=== PATIENT | female | born 1965 | race Caucasian/White ===

== ENCOUNTER → 2020-01-31 08:17 | Outpatient (CLI) | payer SELFPAY ==
--- NOTE | 2020-01-31 08:18 | CT_ITS ---
PROCEDURE: CT HEART W CALCIUM SCORE CLINICAL HISTORY: cp/dfyspnea, family history COMPARISON: No exams were available for comparison TECHNIQUE: Axial images obtained with sagittal and coronal reformats. All CT scans at the facility use one or more dose reduction, viz: automated exposure control, ma/kV adjustment per patient size (including targeted exams where dose is matched to indication, i.e. head), or iterative reconstruction technique. FINDINGS: The coronary artery calcium score is 0. No identifiable atherosclerotic plaque evident with very low cardiovascular disease risk. IMPRESSION: No identifiable calcific atherosclerotic plaque with very low cardiovascular disease risk Dictated by: Sid Bland MD 01/31/2020 14:40 Sid Bland MD in [place] 01/31/2020 14:40
== END ==
PROVIDERS: Visit Provider Internal Medicine Cardiovascular Disease
DX: Z13.6 Encounter for screening for cardiovascular disorders (principal)
CPT/HCPCS: 75571; 93306

== ENCOUNTER → 2020-01-31 09:00 | Outpatient (CLI) | payer MEDICAID, SELFPAY ==
--- NOTE | 2020-01-31 08:40 | CA_ITS ---
APPROVED REPORT EXAM: Comprehensive 2D, Doppler, and color-flow Echocardiogram Transcription Specialist: Kalpana Hitchcock CRT Ht: 5 ft 6 in Wt: 246lbs BSA: 2.18 BP: 138/73 mmHg Indications: Chest Pain, Shortness of Breath, Obesity, Fatigue, Peripheral Edema 2D Dimensions LVOT 1.61 cm (M/F) 1.5-2.5 M-Mode Dimensions RVDd 3.04 cm (0.9-2.6) LA Diam 3.55 cm (1.9-4.0) LVDd 4.47 cm (3.5-5.7) Ao Diam 3.03 cm (2.0-3.7) LVDs 2.93 cm (3.5-5.7) IVSd 1.36 cm (0.6-1.1) PWd 0.82 cm (0.6-1.1) EF (Teich) 63.70% FS 34.50% EDV (Teich) 91.00 mL ESV (Teich) 33.00 mL LV Diastology E Decel Time 387.00 (160-240 msec) E/A Ratio 0.93 MED E' 7.10 (< 7 cm/sec) E'/MED E' Ratio 8.23 (>14) LAT E' 10.80 (<10 cm/sec) E/LAT E' Ratio 5.41 (>14) Aortic Valve AO Peak GR. 5.70 mmHg Mitral Valve MV A Velocity 63.00 (40-130 cm/s) E/A Ratio 0.93 MV Decel. Time 387.00 (160-240 ms) Pulmonary Valve PV Peak Velocity 103.00 (50-150 cm/s) Tricuspid Valve TR P. Velocity 110.00 cm/s RAP Estimate 10.00 mmHg RVSP 14.80 mmHg Left Ventricle Left atrium is normal size, left ventricle is normal size, there is no concentric left ventricular hypertrophy, visually estimated ejection fraction 55% with no regional wall motion abnormality, diastolic parameters are inconclusive. Right Ventricle Right atrium is normal size, right ventricle is mildly enlarged with normal contractility. Aortic Valve Aortic valve is grossly normal, there is no aortic stenosis or aortic insufficiency. Mitral Valve Mitral valve grossly normal, there is no mitral stenosis, there is mild mitral regurgitation. Tricuspid Valve Tricuspid valve is grossly normal, there is mild tricuspid regurgitation. Tricuspid regurgitation jet velocity is inadequate for calculation of the right ventricular systolic pressure. Pulmonic Valve Pulmonic valve is poorly visualized. Great Vessels Aortic root is normal size. Pericardium No significant pericardial effusion noted. Conclusion 1. Normal left ventricular size, preserved left ventricular systolic function, visually estimated ejection fraction 55% with no regional wall motion abnormality, diastolic parameters are inconclusive. 2. Mildly enlarged right ventricle with normal contractility. 3. Mild mitral and tricuspid regurgitation. 4. No significant pericardial effusion noted. Electronically signed by : Dario Feliz, 01/31/2020 16:41:21
== END ==
PROVIDERS: PCP Family Medicine; Visit Provider Internal Medicine Cardiovascular Disease
DX: R07.9 Chest pain, unspecified (principal); R06.00 Dyspnea, unspecified; R53.83 Other fatigue; E66.9 Obesity, unspecified; R06.83 Snoring
CPT/HCPCS: 93306

== ENCOUNTER → 2020-02-06 13:10 | Outpatient (CLI) | payer MEDICAID, SELFPAY | PROVIDERS: PCP Family Medicine; Visit Provider Internal Medicine Cardiovascular Disease | DX: R06.83 Snoring (principal); R07.9 Chest pain, unspecified; R53.83 Other fatigue; R06.00 Dyspnea, unspecified; E66.9 Obesity, unspecified | CPT/HCPCS: G0399 ==

== ENCOUNTER 2020-11-19 21:49 | Emergency (ER) | payer SELFPAY ==
[2020-11-19 21:51] VITALS: BP 125/70; PULSE 97; RESP 20; TEMP 36.8; O2SAT 94; BMI 34.3
[2020-11-19 22:30] VITALS: BP 140/71; PULSE 96; O2SAT 94
--- NOTE | 2020-11-19 22:32 | XR_ITS ---
PROCEDURE INFORMATION: Exam: XR Left Foot Exam date and time: 11/19/2020 10:32 PM Age: 55 years old Clinical indication: Toes; Left; Patient HX: Stubbed pinky toe last night, pain TECHNIQUE: Imaging protocol: XR Left foot. Views: 3 or more views. COMPARISON: No relevant prior studies available. FINDINGS: Bones/joints: There is a minimally displaced oblique fracture through the proximal phalanx of the 5th digit. Soft tissues: Mild associated soft tissue swelling. IMPRESSION: There is a minimally displaced oblique fracture through the proximal phalanx of the 5th digit.
[2020-11-19 23:20] VITALS: BP 162/81; PULSE 94; O2SAT 96
[2020-11-19 23:30] VITALS: BP 159/76; PULSE 91; O2SAT 97
--- NOTE | 2020-11-19 23:31 | HMH.EDLOEX ---
ED Disposition Clinical Impression: Fracture of toe Qualifiers: Encounter type: initial encounter Toe: lesser toe Fracture type: closed Phalanx: proximal Fracture alignment: nondisplaced Laterality: left Qualified Code(s): S92.515A - Nondisplaced fracture of proximal phalanx of left lesser toe(s), initial encounter for closed fracture Disposition: Home, Self-Care Condition on Discharge: Good Instructions: DI for Toe Fracture Additional Instructions: wt bearing as sophie and see jackson jimenes for follow up Referrals: Provider,Referral, [Primary Care Provider] - Britney Jimenes DPM [Staff Physician] - - Critical Care Critical Care Time: No Attestation: On 11/19/20, the high probability of a clinically significant, sudden or life threatening deterioration of the following system(s) required my full and direct attention, intervention and personal management. The time I documented below is in addition to time spent performing reported procedures but includes the following listed in this critical care notation. Medical Decision Making - Medical Records Medical records reviewed: Yes: I reviewed the patient's medical records. - Juan Luis Inquiry Pt receiving controlled substance: No Vital Signs: 11/19/20 21:51 11/19/20 22:30 11/19/20 23:20 Temperature 98.2 F Temperature Source Oral Pulse Rate 96 H 94 H Pulse Rate [Right] 97 H Respiratory Rate 20 Blood Pressure 140/71 162/81 H Blood Pressure [Right Arm] 125/70 Blood Pressure Mean [Right Arm] 88 02 Sat by Pulse Oximetry 94 L 94 L 96 11/19/20 23:30 11/20/20 00:00 Temperature Temperature Source Pulse Rate 91 H 94 H Pulse Rate [Right] Respiratory Rate Blood Pressure 159/76 H 176/87 H Blood Pressure [Right Arm] Blood Pressure Mean [Right Arm] 02 Sat by Pulse Oximetry 97 94 L - Lab Data Lab results reviewed: Yes: I reviewed the patient's lab results. - Radiology Data #1 Image(s): Foot/Toes Image Reviewed: Yes I reviewed the patient's radiology image, Yes I have reviewed radiologist's interpretation Preliminary Findings: Abnormal (toe fx ) Medical Decision Narrative: ice and wt bearing as sophie and see pcp and dr jimenes for follow up Lower Extremity Injury HPI - General Chief Complaint: Extremity Injury, Lower Stated Complaint: ao 11/19@0100 INJURED l lITTLE TOE Time Seen by Provider: 11/19/20 22:30 Mode of Arrival: Ambulatory Source of Information: Patient, Medical Record Limitations: No Limitations Description of Symptoms (Recalled from ER Triage Doc. by RN): pt states last night hit lt pinky toe on basket. pt c/o - History of Present Illness HPI Narrative: acute injury this am of lt foot with pain and swelling and bruising with dec rom - able to bear wt on lt hip MD complaint: foot injury Onset (ago): hour(s) Injury: Left: foot, toes Type of Injury: blunt Place: home Severity: moderate Context: fall Associated symptoms: swelling, able to partially bear weight Other symptoms: none - Related Data Home Medications Medication Instructions Recorded Confirmed citalopram 20 mg tablet 20 mg PO DAILY 01/24/20 02/21/20 divalproex 500 mg tablet,delayed 125 mg PO BID tab 01/24/20 02/21/20 release Previous Rx's Medication Instructions Recorded omeprazole 40 mg capsule,delayed 40 mg PO DAILY #90 cap 01/24/20 release Allergies Allergy/AdvReac Type Severity Reaction Status Date / Time No Known Allergies Allergy Verified 02/21/20 10:32 [facility] History - Hepatitis A Screen Drug use history?: No High risk sexual behaviors?: No History of sexually transmitted infection?: No Currently employed?: No Childcare worker?: No Do you have indoor plumbing?: Yes Do you have electricity?: Yes Attestation statement:: This patient has been screened for Hepatitis A risk factors. I have reviewed the patient's past medical history: Yes Medical History: Reports:: Aneurysm, Seizures Other Surgeries: Yes:
--- NOTE | 2020-11-19 23:57 | PC.NURSE ---
called rad to check on foot xray. waiting to hear back from [facility]
[2020-11-20] VITALS: BP 176/87; PULSE 94; O2SAT 94
[2020-11-20 00:59] VITALS: BP 142/75; PULSE 78; RESP 18; TEMP 36.8; O2SAT 98
== END 2020-11-20 01:02 | disposition home or self-care (01) ==
PROVIDERS: Emergency Provider Emergency Medicine
DX: S92.512A Displaced fracture of proximal phalanx of left lesser toe(s), initial encounter for closed fracture (principal); W22.09XA Striking against other stationary object, initial encounter; Y92.019 Unspecified place in single-family (private) house as the place of occurrence of the external cause; R56.9 Unspecified convulsions
CPT/HCPCS: 73630; 99282

== ENCOUNTER → 2020-12-24 13:01 | Outpatient (CLI) | payer BC, SELFPAY ==
--- NOTE | 2020-12-24 13:05 | XR_ITS ---
PROCEDURE: XR FOOT WT BEARING LT 3V CLINICAL INDICATION: Fracture evaluation COMPARISON: CR FTR3 FOOT-RT-3 VIEWS from 11/15/2015 CR XR FOOT LT MIN 3V from 11/19/2020 FINDINGS: Nondisplaced fracture involves the mid shaft of the proximal phalanx of the 5th digit which does not appear significantly changed. There may be some minimal callus formation developing. IMPRESSION: No significant change nondisplaced fracture proximal phalanx 5th digit Dictated by: Sid Bland MD 12/24/2020 17:15 Sid Bland MD in [place] 12/24/2020 17:15
== END ==
PROVIDERS: PCP Family Medicine; Visit Provider Podiatrist
DX: S92.512A Displaced fracture of proximal phalanx of left lesser toe(s), initial encounter for closed fracture (principal)
CPT/HCPCS: 73630

== ENCOUNTER 2022-10-29 16:04 | Emergency (ER) | payer SELFPAY ==
[2022-10-29 16:05] VITALS: BP 133/53; PULSE 75; RESP 18; TEMP 36.6; O2SAT 95; BMI 41.0
[2022-10-29 16:30] VITALS: BP 126/63; PULSE 73; O2SAT 96
--- NOTE | 2022-10-29 16:53 | PC.NURSE ---
PT STATED NOTHING NEEDED WHEN ROUNDING, CALL LIGHT AT BS
[2022-10-29 17:00] VITALS: BP 106/63; PULSE 66; O2SAT 94
[2022-10-29 17:31] VITALS: BP 105/59; PULSE 71; O2SAT 93
--- NOTE | 2022-10-29 17:37 | HMH.EDGENADL ---
Discharge Plan Disposition Patient Disposition: Home, Self-Care Prescriptions Prescriptions: New sulfamethoxazole-trimethoprim [Bactrim] 400-80 mg tablet 1 tab PO BID 7 Days Qty: 14 0RF sulfamethoxazole-trimethoprim 800-160 mg tablet 1 tab PO BID 7 Days Qty: 14 0RF No Action divalproex [Depakote] 500 mg tablet,delayed release (DR/EC) 125 mg PO BID citalopram [Celexa] 20 mg tablet 20 mg PO DAILY ergocalciferol (vitamin D2) 1,250 mcg (50,000 unit) capsule 1,250 mcg PO meloxicam 7.5 mg tablet 7.5 mg PO DAILY 30 Days Qty: 30 2RF Referrals Follow up/Referrals: Daniele Ybarra II, MD [Primary Care Provider] - See instructions Activity Restrictions/Add. Instructions Additional Instructions/Restrictions: At this time was felt you are safe to be discharged home. If new or worsening symptoms please do not hesitate to return the emergency department. Please take antibiotics as prescribed from [facility]. Do not pickle solution maker the prescription that was sent to [facility] [employer]. Clinical Impressions Clinical Impression: Abscess Instructions Patient Instructions: DI for Skin Abscess Discharge ED Provider: Romeo Bernard General Adult HPI General Chief complaint: Skin/Abscess/Foreign Body Stated complaint: knot behind RT ear Time Seen by Provider: 10/29/22 17:33 Mode of Arrival: Ambulatory Source of Information: Patient Limitations: No Limitations Description of Symptoms (Recalled from ER Triage Doc. by RN): Patient states that she has a knot behind her right ear for 1 week. States it is painful. History of Present Illness HPI narrative: Patient is a 57-year-old female with no pertinent past medical history presents emergency department for evaluation of a knot behind her right ear. It has been present for approximately 1 week, tender to palpation. Denies hearing difficulties, inner ear pain. She attempted to squeeze it and a little bit of pus came out last night. Due to refractory symptoms she presents here for continued evaluation. No other acute complaints at this time. Related Data Home Medications Medication Instructions Recorded Confirmed citalopram 20 mg tablet (Celexa) 20 mg PO DAILY 01/24/20 11/24/20 divalproex 500 mg tablet,delayed 125 mg PO BID 01/24/20 11/24/20 release (Depakote) ergocalciferol (vitamin D2) 1,250 1,250 mcg PO 11/24/20 11/24/20 mcg (50,000 unit) capsule Previous Rx's Medication Instructions Recorded meloxicam 7.5 mg tablet 7.5 mg PO DAILY 30 days #30 tabs 11/26/20 sulfamethoxazole 400 1 tab PO BID 7 days #14 tabs 10/29/22 mg-trimethoprim 80 mg tablet (Bactrim) sulfamethoxazole 800 1 tab PO BID 7 days #14 tabs 10/29/22 mg-trimethoprim 160 mg tablet Allergies Allergy/AdvReac Type Severity Reaction Status Date / Time codeine Allergy Verified 11/24/20 15:09 [facility] Disclaimer: The information contained in this section may have been updated after the patient was seen, as this information can be updated by other users. Social History Smoking Status: Never smoker alcohol intake: current substance use type: denies use current occupational status: disabled Travel in the last 8 weeks: None ROS Obtained: Yes Systems reviewed as appropriate & no additional complaints except as documented Physical Exam General General appearance: alert and in no apparent distress Head Head exam: atraumatic and normocephalic Eye Eye exam: Present PERRL and EOMI ENT ENT exam: Present mucous membranes moist and other (Normal tympanic membrane on the right. Retroauricular swelling area of fluctuance approximately 1 cm behind the pinna. No anterior effacement of the pinna, no tenderness or erythema over the mastoid.) Neck Neck exam: Present normal inspection Chest Chest inspection: Present normal inspection and symmetric chest wall rise Respiratory Respiratory exam: Present normal lung sounds bilaterally; Absent respiratory
[2022-10-29 18:17] VITALS: BP 126/75; PULSE 67; RESP 18; TEMP 36.7; O2SAT 99
== END 2022-10-29 18:19 | disposition home or self-care (01) ==
PROVIDERS: Emergency Provider Emergency Medicine; PCP Family Medicine
DX: L02.811 Cutaneous abscess of head [any part, except face] (principal)
CPT/HCPCS: 99283